=== PATIENT | female | born 1935 | race African-American/Black ===

== ENCOUNTER 2017-06-04 00:30 | Inpatient (IN) | payer MEDICARE, OTHER ==
[2017-06-04] VITALS (20 sets, daily range): BP systolic 99–143; BP diastolic 59–95; PULSE 96–131; RESP 16–26; TEMP 97.4–102.5; O2SAT 92–100
[~2017-06-04] VITALS: Ht 157.5 cm; Wt 60.8 kg
[2017-06-04] MEDS ORDERED: AMLO5TAB2 PO (00:56)
[2017-06-04] MEDS ORDERED: TYLE325T PO (00:56)
[2017-06-04] MEDS ORDERED: MULTTAB67 PO (00:56)
[2017-06-04] MEDS ORDERED: ASPI-516 CHEW (00:56)
[2017-06-04] MEDS ORDERED: ARIC23TA PO (00:56)
[2017-06-04] MEDS ORDERED: POTASOL PO (00:56)
[2017-06-04] MEDS ORDERED: MIRT30TA PO (00:56)
[2017-06-04] MEDS ORDERED: MEMA1TAB PO (00:56)
[2017-06-04] MEDS ORDERED: LOPE2CAP PO (00:56)
--- NOTE | 2017-06-04 01:11 | PD ---
HPI Chief Complaint: Fever Time Seen by Provider: 00:47 Travel History International Travel<30 days: No Contact w/Intl Traveler<30days: No Traveled to known affect area: No History of Present Illness HPI pt sent from [place] for shaking chills altered mental status and fever slight cough, pt baseline demented . awake alert . non verbal temp rectal triage 102 in ER and ROS and HPI limited due to mental status of dementia PFSH Past Medical History Alzheimer's Disease: Yes Depression: Yes Dementia: Yes Hypertension: Yes Tetanus Vaccination: Unknown Influenza Vaccination: Yes Social History Alcohol Use: No Tobacco Use: No Substance Use: No Allergies-Medications (Allergen,Severity, Reaction): Coded Allergies: No Known Allergies (Unverified , 06/04/17) Reported Meds & Prescriptions Reported Meds & Active Scripts Active Reported Aspirin 81 Mg Chew 81 Mg CHEW DAILY Potassium Citrate-Citric Acid 1,100-334 Mg/5 Ml Soln 15 Ml PO QID Memantine 5 Mg Tab 5 Mg PO DAILY Amlodipine (Amlodipine Besylate) 5 Mg Tab 5 Mg PO DAILY Loperamide (Loperamide HCl) 2 Mg Cap 4 Mg PO DIRECTED PRN One capsule after each loose stool. Not to exceed 8 capsules per day. Tylenol (Acetaminophen) 325 Mg Tab 650 Mg PO Q4H PRN Aricept (Donepezil) 23 Mg Tab 5 Mg PO HS Do not split, crushed or chewed. Mirtazapine 30 Mg Tab 30 Mg PO HS Multiple Vitamin 1 Tab 1 Tab PO DAILY Review of Systems ROS Limitations: Poor Historian Data Data Last Documented VS Vital Signs Date Time Temp Pulse Resp B/P (MAP) Pulse Ox O2 Delivery O2 Flow Rate FiO2 06/04/17 02:11 120 22 113/69 (84) 97 Nasal Cannula 4.00 06/04/17 00:59 102.5 Orders Orders Complete Blood Count With Diff (06/04/17 00:49) Comprehensive Metabolic Panel (06/04/17 00:49) Troponin I (06/04/17 00:49) Blood Culture (06/04/17 00:49) Lipase (06/04/17 00:49) Urinalysis - C+S If Indicated (06/04/17 00:49) Ammonia (06/04/17 00:49) Chest, Single Ap (06/04/17 00:49) Vancomycin Inj (Vancomycin Inj) (06/04/17 01:15) Piperacil-Tazo 3.375 Gm Premix (Zosyn 3. (06/04/17 01:15) ^ Straight Catheter (06/04/17 01:06) Acetaminophen (Tylenol) (06/04/17 01:15) Lactic Acid (06/04/17 01:11) Urine Culture (06/04/17 01:05) Admit Order (Ed Use Only) (06/04/17 02:12) Labs Laboratory Tests Test 06/04/17 01:00 06/04/17 01:05 White Blood Count 11.7 TH/MM3 Red Blood Count 3.87 MIL/MM3 Hemoglobin 10.9 GM/DL Hematocrit 33.7 % Mean Corpuscular Volume 87.0 FL Mean Corpuscular Hemoglobin 28.1 PG Mean Corpuscular Hemoglobin Concent 32.3 % Red Cell Distribution Width 14.4 % Platelet Count 357 TH/MM3 Mean Platelet Volume 7.0 FL Neutrophils (%) (Auto) 77.5 % Lymphocytes (%) (Auto) 12.3 % Monocytes (%) (Auto) 10.0 % Eosinophils (%) (Auto) 0.0 % Basophils (%) (Auto) 0.2 % Neutrophils # (Auto) 9.1 TH/MM3 Lymphocytes # (Auto) 1.4 TH/MM3 Monocytes # (Auto) 1.2 TH/MM3 Eosinophils # (Auto) 0.0 TH/MM3 Basophils # (Auto) 0.0 TH/MM3 CBC Comment DIFF FINAL Differential Comment Blood Urea Nitrogen 12 MG/DL Creatinine 0.97 MG/DL Random Glucose 154 MG/DL Total Protein 7.2 GM/DL Albumin 2.6 GM/DL Calcium Level 8.3 MG/DL Alkaline Phosphatase 109 U/L Aspartate Amino Transf (AST/SGOT) 33 U/L Alanine Aminotransferase (ALT/SGPT) 22 U/L Total Bilirubin 0.4 MG/DL Sodium Level 142 MEQ/L Potassium Level 3.8 MEQ/L Chloride Level 106 MEQ/L Carbon Dioxide Level 23.4 MEQ/L Anion Gap 13 MEQ/L Estimat Glomerular Filtration Rate 55 ML/MIN Lactic Acid Level 1.0 mmol/L Ammonia 16 MCMOL/L Troponin I 0.03 NG/ML Lipase 33 U/L Urine Color YELLOW Urine Turbidity HAZY Urine pH 6.0 Urine Specific [place] 1.023 Urine Protein 100 mg/dL Urine Glucose (UA) NEG mg/dL Urine Ketones 40 mg/dL Urine Occult Blood MOD Urine Nitrite POS Urine Bilirubin NEG Urine Urobilinogen 2.0 MG/DL Urine Leukocyte Esterase NEG Urine RBC 2 /hpf Urine WBC 7 /hpf Urine Squamous Epithelial Cells <1 /hpf Urine Bacteria MANY /hpf Urine Hyaline Casts 2 /lpf Urine Mucus MANY /lpf Microscopic Urinalysis Comment CULTURE INDICATED MDM Medical Decision Making Interpretation(s) EKG is left bundle branch block at a rate of 129 due to fever Diagnosis Primary Impression: Pneumonia Qualified Codes: J18.1 - Lobar pneumonia, unspecified organism Additional Impression: Urinary (tract) obstruction Osei Ruiz MD Jun 04, 2017 01:11
[2017-06-04] MEDS ORDERED: VANCOMYCIN INJ 1,000 MG in SODIUM CHLOR 0.9% 250 ML INJ 250 ML IV ONE (01:15)
[2017-06-04] MEDS ORDERED: ACETAMINOPHEN 325 MG TAB PO ONE (01:15)
[2017-06-04] MEDS ORDERED: PIPERACIL-TAZO 3.375 GM PREMIX 50 ML IV ONE (01:15)
[2017-06-04 01:16] LABS: AUTOMATED NEUTROPHIL # 9.1 TH/MM3 (1.8-7.7); BASOPHIL % 0.2 % (0.0-2.0); HEMATOCRIT 33.7 % (35.0-46.0); HEMOGLOBIN 10.9 GM/DL (11.6-15.3); LYMPH % 12.3 % (9.0-44.0); LYMPHOCYTE # 1.4 TH/MM3 (1.0-4.8); MEAN CORPUSCULAR HEMOGLOBIN 28.1 PG (27.0-34.0); MEAN CORPUSCULAR HGB CONC 32.3 % (32.0-36.0); MONOCYTE # 1.2 TH/MM3 (0-0.9); NEUT % 77.5 % (16.0-70.0); PLATELET COUNT 357 TH/MM3 (150-450); RED BLOOD COUNT 3.87 MIL/MM3 (4.00-5.30); RED CELL DISTRIBUTION WIDTH 14.4 % (11.6-17.2); WHITE BLOOD COUNT 11.7 TH/MM3 (4.0-11.0)
[2017-06-04 01:22] LABS: BACTERIA, URINE MANY /hpf; BILIRUBIN, URINE NEG (NEG); BLOOD, URINE MOD (NEG); GLUCOSE,URINE NEG (NEG); HYALINE CAST, URINE 2 /lpf (RARE); KETONE, URINE 40 mg/dL (NEG); MUCUS URINE MANY /lpf (OCC); NITRITE,URINE POS (NEG); SQUAMOUS EPITHELIAL CELL URINE <1 /hpf (0-5); URINE COLOR YELLOW (YELLW/STRAW); URINE LEUKOCYTE ESTERASE NEG (NEG)
[2017-06-04 01:30] LABS: ALBUMIN 2.6 GM/DL (3.4-5.0); ALT (GPT) 22 U/L (10-53); AST (GOT) 33 U/L (15-37); BICARBONATE 23.4 MEQ/L (21.0-32.0); BLOOD UREA NITROGEN 12 MG/DL (7-18); CALCIUM 8.3 MG/DL (8.5-10.1); CHLORIDE 106 MEQ/L (98-107); CREATININE 0.97 MG/DL (0.50-1.00); GLOMERULAR FILTRATION RATE 55 ML/MIN (>89); GLUCOSE,RANDOM 154 MG/DL (74-106); SODIUM (NA) 142 MEQ/L (136-145)
[2017-06-04 01:34] LABS: ALKALINE PHOSPHATASE 109 U/L (45-117); TOTAL BILIRUBIN ADULT 0.4 MG/DL (0.2-1.0); TOTAL PROTEIN 7.2 GM/DL (6.4-8.2); TROPONIN I 0.03 NG/ML (0.02-0.05)
--- NOTE | 2017-06-04 01:46 | RADRPT ---
EXAM DATE/TIME: 06/04/2017 01:12 [place] COMPARISON: No previous studies available for comparison. INDICATIONS : Cough. MEDICAL HISTORY : Hypertension. SURGICAL HISTORY : None. ENCOUNTER: Initial ACUITY: 1 day PAIN SCORE: Non-responsive. LOCATION: Bilateral chest FINDINGS: Mild patient rotation towards the right. Indistinct opacity in the right perihilar and infrahilar re gion with possible consolidation. The heart is normal in size when taking into account patient rotat ion. The left lung is clear. Left hemidiaphragm is well delineated. CONCLUSION: Infiltrates in the right munir-and infrahilar regions. Dino Sheppard MD on June 04, 2017 at 1:39 Board Certified Radiologist. This report was verified electronically.
[2017-06-04] MEDS ORDERED: SODIUM CHLORIDE 0.9% FLUSH 10 ML FLUSH IV FLUSH PRN (02:30)
[2017-06-04] MEDS ORDERED: ACETAMINOPHEN 325 MG TAB PO PRN (02:30)
[2017-06-04] MEDS ORDERED: ONDANSETRON HCL 4 MG/2 ML VIAL IVP PRN (02:30)
[2017-06-04] MEDS ORDERED: LACTULOSE SYRUP 20 GM/30 ML CUP PO PRN (02:30)
[2017-06-04] MEDS ORDERED: Vancomycin Consult Pharmacy 1 EA OTHER SCH (02:30)
[2017-06-04] MEDS ORDERED: MAGNESIUM HYDROXIDE SUSP 30 ML CUP PO PRN (02:30)
[2017-06-04] MEDS ORDERED: BISACODYL 10 MG SUPP RECTAL PRN (02:30)
[2017-06-04] MEDS ORDERED: SENNOSIDES 8.6 MG TAB PO PRN (02:30)
[2017-06-04] MEDS ORDERED: NALOXONE HCL 0.4 MG/ML AMP IV PUSH PRN (02:30)
[2017-06-04] MEDS ORDERED: RESP: ALBUTEROL 2.5 MG/IPRATROPIUM 0.5 MG NEB (PRN) NEB (02:45)
[2017-06-04] MEDS: RESP: ALBUTEROL 2.5 MG/IPRATROPIUM 0.5 MG NEB (SCH) NEB ×4 (03:15→19:24)
--- NOTE | 2017-06-04 04:26 | HHI.HP ---
[facility] Nicholas Galindo MD (Paul) Admission Diagnosis Urosepsis PNA Diagnoses: Travel History International Travel<30 Days: No Contact w/Intl Traveler <30 Da: No Traveled to Known Affected Are: No History of Present Illness 81-year-old female with a past medical history significant for Alzheimer's dementia, hypertension, coronary artery disease and depression presents to the emergency depart for the evaluation of altered mental status and fevers. Patient is a resident of [facility] who is unable to tell me why she is in the emergency department. She will answer simple questions however is alert and oriented 1. Per emergency department documentation the patient has had a slight nonproductive cough and is demented at baseline. On arrival to the emergency department she was found to be febrile and tachycardic. Review of Systems Review of systems limited secondary to clinical condition. Patient denies any pain at this time. Past Family Social History Past Medical History (Obtained from medical records) Alzheimer's dementia, hypertension, coronary artery disease and depression Past Surgical History Unable to obtain Reported Medications Reported Meds & Active Scripts Active Reported Aspirin 81 Mg Chew 81 Mg CHEW DAILY Potassium Citrate-Citric Acid 1,100-334 Mg/5 Ml Soln 15 Ml PO QID Memantine 5 Mg Tab 5 Mg PO DAILY Amlodipine (Amlodipine Besylate) 5 Mg Tab 5 Mg PO DAILY Loperamide (Loperamide HCl) 2 Mg Cap 4 Mg PO DIRECTED PRN One capsule after each loose stool. Not to exceed 8 capsules per day. Tylenol (Acetaminophen) 325 Mg Tab 650 Mg PO Q4H PRN Aricept (Donepezil) 23 Mg Tab 5 Mg PO HS Do not split, crushed or chewed. Mirtazapine 30 Mg Tab 30 Mg PO HS Multiple Vitamin 1 Tab 1 Tab PO DAILY Allergies: Coded Allergies: No Known Allergies (Unverified , 06/04/17) Family History Unable to obtain Social History Unable to obtain Physical Exam Vital Signs Vital Signs Date Time Temp Pulse Resp B/P (MAP) Pulse Ox O2 Delivery O2 Flow Rate FiO2 06/04/17 03:17 97 Nasal Cannula 3.00 06/04/17 03:11 99.4 06/04/17 02:11 120 22 113/69 (84) 97 Nasal Cannula 4.00 06/04/17 00:59 102.5 06/04/17 00:42 101.5 131 26 137/95 (109) 94 Physical Exam GENERAL: female lying in bed SKIN: No rashes, ecchymoses or lesions. Cool and dry. HEAD: Atraumatic. Normocephalic. No temporal or scalp tenderness. EYES: Pupils equal round and reactive. Extraocular motions intact. No scleral icterus. No injection or drainage. ENT: Nose without bleeding, purulent drainage or septal hematoma. Throat without erythema, tonsillar hypertrophy or exudate. Uvula midline. Airway patent. NECK: Trachea midline. No JVD or lymphadenopathy. Supple, nontender, no meningeal signs. CARDIOVASCULAR: Regular rate and rhythm without murmurs, gallops, or rubs. RESPIRATORY: Clear to auscultation. Breath sounds equal bilaterally. No wheezes , rales, or rhonchi. GASTROINTESTINAL: Abdomen soft, non-tender, nondistended. No hepato-splenomegaly , or palpable masses. No guarding. MUSCULOSKELETAL: Extremities without clubbing, cyanosis, or edema. No joint tenderness, effusion, or edema noted. No calf tenderness. NEUROLOGICAL: Awake and alert. Moves all 4 extremities spontaneously. Laboratory Laboratory Tests Test 06/04/17 01:00 06/04/17 01:05 White Blood Count 11.7 Red Blood Count 3.87 Hemoglobin 10.9 Hematocrit 33.7 Mean Corpuscular Volume 87.0 Mean Corpuscular Hemoglobin 28.1 Mean Corpuscular Hemoglobin Concent 32.3 Red Cell Distribution Width 14.4 Platelet Count 357 Mean Platelet Volume 7.0 Neutrophils (%) (Auto) 77.5 Lymphocytes (%) (Auto) 12.3 Monocytes (%) (Auto) 10.0 Eosinophils (%) (Auto) 0.0 Basophils (%) (Auto) 0.2 Neutrophils # (Auto) 9.1 Lymphocytes # (Auto) 1.4 Monocytes # (Auto) 1.2 Eosinophils # (Auto) 0.0 Basophils # (Auto) 0.0 CBC Comment DIFF FINAL Differential Comment Blood Urea Nitrogen 12 Creatinine 0.97 Random Glucose 154 Total Protein 7.2 Albumin 2.6 Calcium Level 8.3 Alkaline Phosphatase 109 Aspartate Amino Transf (AST/SGOT) 33 Alanine Aminotransferase (ALT/SGPT) 22 Total Bilirubin 0.4 Sodium Level 142 Potassium Level 3.8 Chloride Level 106 Carbon Dioxide Level 23.4 Anion Gap 13 Estimat Glomerular Filtration Rate 55 Lactic Acid Level 1.0 Ammonia 16 Troponin I 0.03 Lipase 33 Urine Color YELLOW Urine Turbidity HAZY Urine pH 6.0 Urine Specific [place] 1.023 Urine Protein 100 Urine Glucose (UA) NEG Urine Ketones 40 Urine Occult Blood MOD Urine Nitrite POS Urine Bilirubin NEG Urine Urobilinogen 2.0 Urine Leukocyte Esterase NEG Urine RBC 2 Urine WBC 7 Urine Squamous Epithelial Cells <1 Urine Bacteria MANY Urine Hyaline Casts 2 Urine Mucus MANY Microscopic Urinalysis Comment CULTURE INDICATED Date/Time Source Procedure Growth Status 06/04/17 01:00 Blood Peripheral Aerobic Blood Culture Pending Received 06/04/17 01:00 Blood Peripheral Anaerobic Blood Culture Pending Received 06/04/17 01:05 Urine Random Urine Urine Culture Pending Received Result Diagram: 06/04/179906/04/17 010 Caprini VTE Risk Assessment Caprini VTE Risk Assessment: Mod/High Risk (score >= 2) Caprini Risk Assessment Model Point Value = 1 Point Value = 2 Point Value = 3 Point Value = 5 Age 41-60 Minor surgery BMI > 25 kg/m2 Swollen legs Varicose veins or History of unexplained or recurrent spontaneous Oral contraceptives or hormone replacement Sepsis (< 1 month) Serious lung disease, including pneumonia (< 1 month) Abnormal pulmonary function Acute myocardial infarction Congestive heart failure (< 1 month) History of inflammatory bowel disease Medical patient at bed rest Age 61-74 Arthroscopic surgery Major open surgery (> 45 min) Laparoscopic surgery (> 45 min) Malignancy Confined to bed (> 72 hours) Immobilizing plaster cast Central venous access Age >= 75 History of VTE Family history of VTE Factor V Leiden Prothrombin [id number] Lupus anticoagulant Anticardiolipin antibodies Elevated serum homocysteine Heparin-induced thrombocytopenia Other congenital or acquired thrombophilia Stroke (< 1 month) Elective arthroplasty Hip, pelvis, or leg fracture Acute spinal cord injury (< 1 month) Prophylaxis Regimen Total Risk Factor Score Risk Level Prophylaxis Regimen 0-1 Low Early ambulation 2 Moderate Order ONE of the following: *Sequential Compression Device (SCD) *Heparin 5000 units SQ BID 3-4 Higher Order ONE of the following medications: *Heparin 5000 units SQ TID *Enoxaparin/Lovenox 40 mg SQ daily (WT < 150 kg, CrCl > 30 mL/min) *Enoxaparin/Lovenox 30 mg SQ daily (WT < 150 kg, CrCl > 10-29 mL/min) *Enoxaparin/Lovenox 30 mg SQ BID (WT < 150 kg, CrCl > 30 mL/min) AND/OR *Sequential Compression Device (SCD) 5 or more Highest Order ONE of the following medications: *Heparin 5000 units SQ TID (Preferred with Epidurals) *Enoxaparin/Lovenox 40 mg SQ daily (WT < 150 kg, CrCl > 30 mL/min) *Enoxaparin/Lovenox 30 mg SQ daily (WT < 150 kg, CrCl > 10-29 mL/min) *Enoxaparin/Lovenox 30 mg SQ BID (WT < 150 kg, CrCl > 30 mL/min) AND *Sequential Compression Device (SCD) Assessment and Plan Assessment and Plan Assessment/plan: 1. Healthcare associated pneumonia/sepsis Patient febrile, tachycardic with leukocytosis Vancomycin/Zosyn Blood cultures pending DuoNeb's Supplemental oxygen as needed 2. UTI UA consistent with urinary tract infection Urine culture pending Antibiotics as above 3. Hypertension/coronary disease/depression Continue home medication FEN Heart healthy diet Electrolytes: monitor and replete prn Heparin NS at 80 cc/hr Physician Certification 2 Midnight Certification Type: Admission for Inpatient Services Order for Inpatient Services The services are ordered in accordance with Medicare regulations or non- Medicare payer requirements, as applicable. In the case of services not specified as inpatient-only, they are appropriately provided as inpatient services in accordance with the 2-midnight benchmark. Estimated LOS (days): 2 2 days is the estimated time the patient will need to remain in the hospital, assuming treatment plan goals are met and no additional complications. Post-Hospital Plan: Not yet determined Natasha Parsons MD Jun 04, 2017 04:25
[2017-06-04] MEDS: HEPARIN SODIUM - SQ 10,000 UNITS/ML VIAL SQ SCH ×3 (04:28→20:25)
[2017-06-04] MEDS: SODIUM CHLOR 0.9% 1000 ML INJ 1,000 ML IV SCH ×2 (04:32→14:25)
[2017-06-04] MEDS: amLODIPine BESYLATE 5 MG TAB PO SCH (08:27)
[2017-06-04] MEDS: SODIUM CHLORIDE 0.9% FLUSH 10 ML FLUSH IV FLUSH SCH ×2 (08:28→20:28)
[2017-06-04] MEDS: PIPERACIL-TAZO 3.375 GM PREMIX 50 ML IV SCH ×3 (08:30→20:24)
[2017-06-04] MEDS: MEMANTINE HCL 5 MG TAB PO SCH (09:00)
[2017-06-04] MEDS: POTASSIUM CITRATE/CITRIC ACID SOLN 15 ML UDC PO SCH ×4 (09:00→20:25)
[2017-06-04] MEDS: ASPIRIN 81 MG CHEW TAB CHEW SCH (09:00)
[2017-06-04] MEDS: guaiFENesin E.R. 600 MG TAB PO SCH ×2 (09:00→20:25)
--- NOTE | 2017-06-04 12:11 | HHI.PR ---
Addendum to Inpatient Note Addendum Reason: Additional Documentation Additional Information The patient was sitting up in a chair. She was feeling well. Her daughter was at the bedside and her questions were answered. The patient was having some swallowing difficulties and was about to work with speech therapy. We will continue IV antibiotics. Continue rehab efforts. Taj Peterson DO Jun 04, 2017 12:11
--- NOTE | 2017-06-04 13:36 | EKG ---
Date Performed: 06/04/2017 Time Performed: 00:49:37 PTAGE: 81 years EKG: ECTOPIC ATRIAL TACHYCARDIA MARKED LEFT AXIS DEVIATION LEFT BUNDLE BRANCH BLOCK ABNORMAL ECG NO PREVIOUS TRACING DOCTOR: Rodolfo Pompa Interpretating Date/Time 06/04/2017 13:35:18
[2017-06-04] MEDS: DONEPEZIL HCL 5 MG TAB PO SCH (20:25)
[2017-06-04] MEDS: MIRTAZAPINE 15 MG TAB PO SCH (20:25)
[2017-06-05] VITALS (8 sets, daily range): BP systolic 128–161; BP diastolic 71–93; PULSE 95–108; RESP 17–20; TEMP 98–98.6; O2SAT 94–100
[2017-06-05] MEDS: VANCOMYCIN 1,000 MG/NS 250 ML IV SCH ×2 (02:14)
[2017-06-05] MEDS: SODIUM CHLOR 0.9% 1000 ML INJ 1,000 ML IV SCH ×2 (02:58→15:28)
[2017-06-05] MEDS: PIPERACIL-TAZO 3.375 GM PREMIX 50 ML IV SCH ×4 (04:03→19:54)
[2017-06-05] MEDS: HEPARIN SODIUM - SQ 10,000 UNITS/ML VIAL SQ SCH ×3 (04:13→19:55)
[2017-06-05] MEDS: RESP: ALBUTEROL 2.5 MG/IPRATROPIUM 0.5 MG NEB (SCH) NEB ×4 (05:11→21:35)
[2017-06-05 06:20] LABS: AUTOMATED NEUTROPHIL # 7.7 TH/MM3 (1.8-7.7); BASOPHIL % 0.4 % (0.0-2.0); EOSINOPHIL # 0.1 TH/MM3 (0-0.4); EOSINOPHIL % 0.6 % (0.0-4.0); HEMATOCRIT 32.8 % (35.0-46.0); HEMOGLOBIN 10.9 GM/DL (11.6-15.3); LYMPH % 17.7 % (9.0-44.0); LYMPHOCYTE # 1.9 TH/MM3 (1.0-4.8); MEAN CELL VOLUME 87.6 FL (80.0-100.0); MEAN CORPUSCULAR HGB CONC 33.1 % (32.0-36.0); MONO % 8.3 % (0.0-8.0); MONOCYTE # 0.9 TH/MM3 (0-0.9); PLATELET COUNT 383 TH/MM3 (150-450); RED BLOOD COUNT 3.75 MIL/MM3 (4.00-5.30); RED CELL DISTRIBUTION WIDTH 14.5 % (11.6-17.2); WHITE BLOOD COUNT 10.6 TH/MM3 (4.0-11.0)
[2017-06-05 06:41] LABS: BICARBONATE 25.2 MEQ/L (21.0-32.0); CALCIUM 8.5 MG/DL (8.5-10.1); CREATININE 0.91 MG/DL (0.50-1.00)
[2017-06-05] MEDS: MEMANTINE HCL 5 MG TAB PO SCH (08:33)
[2017-06-05] MEDS: guaiFENesin E.R. 600 MG TAB PO SCH ×2 (08:33→19:54)
[2017-06-05] MEDS: amLODIPine BESYLATE 5 MG TAB PO SCH (08:33)
[2017-06-05] MEDS: POTASSIUM CITRATE/CITRIC ACID SOLN 15 ML UDC PO SCH ×4 (08:33→19:54)
[2017-06-05] MEDS: ASPIRIN 81 MG CHEW TAB CHEW SCH (08:33)
[2017-06-05] MEDS: SODIUM CHLORIDE 0.9% FLUSH 10 ML FLUSH IV FLUSH SCH ×2 (08:33→19:55)
[2017-06-05 09:13] LABS: BANDS 17 % (0-6); LYMPHOCYTES 11 % (9-44); MONOCYTES 7 % (0-8); MYELOCYTES 1 % (0-0); NEUTROPHIL # MANUAL DIFF 8.6 TH/MM3 (1.8-7.7); POLYS (SEG NEUTROPHILS) 63 % (16-70)
[2017-06-05 09:14] LABS: OVALOCYTES 1+ (NORMAL)
--- NOTE | 2017-06-05 10:57 | HHI.PR ---
Subjective Remarks Follow-up sepsis. States she is pretty good. She is awake and following simple commands. Discussed with nursing Objective Vitals Vital Signs Date Time Temp Pulse Resp B/P (MAP) Pulse Ox O2 Delivery O2 Flow Rate FiO2 06/05/17 08:52 96 Nasal Cannula 2.00 06/05/17 08:00 Nasal Cannula 2.00 06/05/17 08:00 98.6 108 17 138/77 (97) 95 06/05/17 08:00 100 06/05/17 04:00 98.0 102 20 140/80 (100) 95 06/05/17 04:00 Nasal Cannula 2.00 06/05/17 04:00 101 06/05/17 00:00 105 06/05/17 00:00 98.0 105 20 128/75 (92) 100 06/05/17 00:00 Nasal Cannula 2.00 06/04/17 22:24 98.0 117 16 126/65 (85) 98 06/04/17 21:30 Nasal Cannula 2.00 06/04/17 21:18 117 06/04/17 20:03 101.9 130 20 143/69 (93) 93 06/04/17 19:25 96 Nasal Cannula 2.00 06/04/17 16:00 97.8 104 16 120/66 (84) 97 06/04/17 15:27 96 06/04/17 12:03 105 06/04/17 11:12 97.9 103 16 121/68 (85) 95 06/04/17 10:58 97 Nasal Cannula 2.00 I/O 06/04/17 06/04/17 06/04/17 06/05/17 06/05/17 06/05/17 07:00 15:00 23:00 07:00 15:00 23:00 Intake Total 50 ml 100 ml 1010 ml Balance 50 ml 100 ml 1010 ml Intake Oral 0 ml 0 ml 100 ml IV Total 50 ml 100 ml 910 ml # Voids 2 # Bowel Movements 2 Result Diagram: 06/05/17 0544 06/05/17 0445 Imaging Last Impressions Chest X-Ray 06/04/17 0049 Signed Impressions: Service Date/Time: Sunday, June 04, 2017 01:12 - CONCLUSION: Infiltrates in the right munir-and infrahilar regions. Dino Sheppard MD Objective Remarks GENERAL: female lying in bed SKIN: No rashes, ecchymoses or lesions. Cool and dry. CARDIOVASCULAR: Regular rate and rhythm without murmurs, gallops, or rubs. RESPIRATORY: Clear to auscultation. Breath sounds equal bilaterally. No wheezes , rales, or rhonchi. GASTROINTESTINAL: Abdomen soft, non-tender, nondistended. No guarding. MUSCULOSKELETAL: Extremities without clubbing, cyanosis, or edema. No joint tenderness, effusion, or edema noted. No calf tenderness. NEUROLOGICAL: Awake and alert. Moves all 4 extremities spontaneously. Procedures none A/P Problem List: (1) Pneumonia ICD Code: J18.9 - Pneumonia, unspecified organism Status: Acute (2) Urinary (tract) obstruction ICD Code: N13.9 - Obstructive and reflux uropathy, unspecified Status: Acute Assessment and Plan 1. Healthcare associated pneumonia/sepsis Patient febrile, tachycardic with leukocytosis Vancomycin/Zosyn Blood cultures negative to date DuoNeb's Supplemental oxygen as needed 2. UTI with gram-negative tatyana UA consistent with urinary tract infection Urine culture pending Antibiotics as above 3. Hypertension/coronary disease/depression Continue home medication Encephalopathy hx dementia. Likely from sepsis. Improved i think she is baseline FEN Heart healthy diet Electrolytes: monitor and replete prn Heparin NS at 80 cc/hr Discharge Planning Discharge in 1-2 days Problem Qualifiers (1) Pneumonia: Qualified Codes: J18.1 - Lobar pneumonia, unspecified organism James Acharya MD Jun 05, 2017 10:57
--- NOTE | 2017-06-05 14:50 | HHI.DCPOC ---
Discharge Care Plan Diagnosis: (1) Urinary (tract) obstruction (2) Pneumonia Your Health Problems Are: Difficulty with ADL Exercise Tolerance Goals to Promote Your Health * To prevent worsening of your condition and complications * To maintain your health at the optimal level Directions to Meet Your Goals Take your medications as prescribed Follow your dietary instruction Follow activity as directed Keep your appointments as scheduled Take your immunizations and boosters as scheduled If your symptoms worsen call your PCP, if no PCP go to Urgent Care Center or Emergency Room Smoking is Dangerous to Your Health. Avoid second hand smoke Call the 24-hour hour crisis hotline for domestic abuse at James Acharya MD Jun 05, 2017 14:50
[2017-06-05] MEDS: MIRTAZAPINE 15 MG TAB PO SCH (19:54)
[2017-06-05] MEDS: DONEPEZIL HCL 5 MG TAB PO SCH (19:55)
[2017-06-06] VITALS: BP 147/84; PULSE 109; PULSE 113; RESP 20; TEMP 98.5; O2SAT 92
[2017-06-06] MEDS: VANCOMYCIN 1,000 MG/NS 250 ML IV SCH ×2 (02:16)
[2017-06-06] MEDS: PIPERACIL-TAZO 3.375 GM PREMIX 50 ML IV SCH ×2 (02:17→08:31)
[2017-06-06] MEDS: RESP: ALBUTEROL 2.5 MG/IPRATROPIUM 0.5 MG NEB (SCH) NEB ×2 (03:55→08:15)
[2017-06-06] MEDS: SODIUM CHLOR 0.9% 1000 ML INJ 1,000 ML IV SCH (03:58)
[2017-06-06 04:00] VITALS: BP 130/67; PULSE 102; PULSE 98; RESP 20; TEMP 99.5; O2SAT 94
[2017-06-06] MEDS: HEPARIN SODIUM - SQ 10,000 UNITS/ML VIAL SQ SCH ×2 (05:12→12:26)
[2017-06-06 08:00] VITALS: BP 151/83; PULSE 86; PULSE 98; RESP 20; TEMP 96.5; O2SAT 91
[2017-06-06 08:18] VITALS: O2SAT 92
[2017-06-06] MEDS: POTASSIUM CITRATE/CITRIC ACID SOLN 15 ML UDC PO SCH ×2 (08:31→12:25)
[2017-06-06] MEDS: guaiFENesin E.R. 600 MG TAB PO SCH (08:31)
[2017-06-06] MEDS: amLODIPine BESYLATE 5 MG TAB PO SCH (08:32)
[2017-06-06] MEDS: ASPIRIN 81 MG CHEW TAB CHEW SCH (08:32)
[2017-06-06] MEDS: MEMANTINE HCL 5 MG TAB PO SCH (08:32)
[2017-06-06] MEDS: SODIUM CHLORIDE 0.9% FLUSH 10 ML FLUSH IV FLUSH SCH (08:33)
--- NOTE | 2017-06-06 08:33 | HHI.PR ---
Subjective Remarks F/U PNA and UTI. States she is pretty good oriented to person dw RN Objective Vitals Vital Signs Date Time Temp Pulse Resp B/P (MAP) Pulse Ox O2 Delivery O2 Flow Rate FiO2 06/06/17 08:18 92 21 06/06/17 04:00 98 06/06/17 04:00 99.5 102 20 130/67 (88) 94 06/06/17 00:00 109 06/06/17 00:00 98.5 113 20 147/84 (105) 92 06/05/17 20:00 104 06/05/17 20:00 98.1 102 20 152/93 (112) 94 06/05/17 20:00 Nasal Cannula 2.00 06/05/17 16:00 104 06/05/17 16:00 98.3 107 17 134/71 (92) 97 06/05/17 15:51 94 Nasal Cannula 2.00 06/05/17 12:00 95 06/05/17 12:00 98.6 100 17 161/82 (108) 97 06/05/17 08:52 96 Nasal Cannula 2.00 I/O 06/05/17 06/05/17 06/05/17 06/06/17 06/06/17 06/06/17 07:00 15:00 23:00 07:00 15:00 23:00 Intake Total 1010 ml 0 ml Balance 1010 ml 0 ml Intake Oral 100 ml 0 ml IV Total 910 ml # Voids 2 6 2 # Bowel Movements 2 1 1 Result Diagram: 06/05/17 0544 06/05/17 0445 Imaging Last Impressions Chest X-Ray 06/04/17 0049 Signed Impressions: Service Date/Time: Sunday, June 04, 2017 01:12 - CONCLUSION: Infiltrates in the right munir-and infrahilar regions. Dino Sheppard MD Objective Remarks GENERAL: female lying in bed SKIN: No rashes, ecchymoses or lesions. Cool and dry. CARDIOVASCULAR: Regular rate and rhythm without murmurs, gallops, or rubs. RESPIRATORY: Clear to auscultation. Breath sounds equal bilaterally. No wheezes , rales, or rhonchi. GASTROINTESTINAL: Abdomen soft, non-tender, nondistended. No guarding. MUSCULOSKELETAL: Extremities without clubbing, cyanosis, or edema. No joint tenderness, effusion, or edema noted. No calf tenderness. NEUROLOGICAL: Awake and alert. Moves all 4 extremities spontaneously. Procedures none A/P Problem List: (1) Pneumonia ICD Code: J18.9 - Pneumonia, unspecified organism Status: Acute (2) Urinary (tract) obstruction ICD Code: N13.9 - Obstructive and reflux uropathy, unspecified Status: Acute Assessment and Plan 1. Healthcare associated pneumonia/sepsis. Improved switch to po Cipro rpt CXR 6 weeks. Blood cultures negative to date. Ordered sputum culture, urinary Legionella and pneumococcal antigen. DuoNeb's. Supplemental oxygen as needed 2. E coli UTI. Stable as above 3. Hypertension/coronary disease/depression. Stable Continue home medication 4. Encephalopathy hx dementia. Likely from sepsis. Improved I think she is baseline. Ct Pureed she needs assistance with meals Discharge Planning Stable for Discharge to SNF Problem Qualifiers (1) Pneumonia: Qualified Codes: J18.1 - Lobar pneumonia, unspecified organism James Acharya MD Jun 06, 2017 08:33
[2017-06-06] MEDS ORDERED: CIPROFLOXACIN 500 MG TAB PO SCH (11:15)
[2017-06-06] MEDS ORDERED: CIPR750T2 PO (11:25)
[2017-06-06 12:00] VITALS: BP 145/87; PULSE 99; RESP 20; TEMP 97; O2SAT 95
[2017-06-06] MEDS ORDERED: CIPROFLOXACIN 750 MG TAB PO SCH (12:00)
--- NOTE | 2017-06-06 13:32 | HHI.DS ---
Discharge Summary Admission Date Jun 04, 2017 at 02:14 Discharge Date: Jun 06, 2017 Admitting Diagnosis Urosepsis PNA (1) Pneumonia ICD Code: J18.9 - Pneumonia, unspecified organism Diagnosis: Principal Status: Acute (2) Urinary (tract) obstruction ICD Code: N13.9 - Obstructive and reflux uropathy, unspecified Diagnosis: Principal Status: Acute Procedures none Brief History - From Admission 81-year-old female with a past medical history significant for Alzheimer's dementia, hypertension, coronary artery disease and depression presents to the emergency depart for the evaluation of altered mental status and fevers. Patient is a resident of [facility] who is unable to tell me why she is in the emergency department. She will answer simple questions however is alert and oriented 1. Per emergency department documentation the patient has had a slight nonproductive cough and is demented at baseline. On arrival to the emergency department she was found to be febrile and tachycardic. CBC/BMP: 06/05/17 0544 06/05/17 0445 Significant Findings Laboratory Tests Test 06/04/17 01:00 06/04/17 01:05 06/05/17 04:45 06/05/17 05:44 White Blood Count 11.7 TH/MM3 (4.0-11.0) Red Blood Count 3.87 MIL/MM3 (4.00-5.30) 3.75 MIL/MM3 (4.00-5.30) Hemoglobin 10.9 GM/DL (11.6-15.3) 10.9 GM/DL (11.6-15.3) Hematocrit 33.7 % (35.0-46.0) 32.8 % (35.0-46.0) Neutrophils (%) (Auto) 77.5 % (16.0-70.0) 73.0 % (16.0-70.0) Monocytes (%) (Auto) 10.0 % (0.0-8.0) 8.3 % (0.0-8.0) Neutrophils # (Auto) 9.1 TH/MM3 (1.8-7.7) Monocytes # (Auto) 1.2 TH/MM3 (0-0.9) Random Glucose 154 MG/DL (74-106) Albumin 2.6 GM/DL (3.4-5.0) Calcium Level 8.3 MG/DL (8.5-10.1) Estimat Glomerular Filtration Rate 55 ML/MIN (>89) 72 ML/MIN (>89) Lipase 33 U/L (73-393) Urine Turbidity HAZY (CLEAR) Urine Protein 100 mg/dL (NEG-TRACE) Urine Ketones 40 mg/dL (NEG) Urine Occult Blood MOD (NEG) Urine Nitrite POS (NEG) Urine WBC 7 /hpf (0-5) Urine Bacteria MANY /hpf (NONE) Urine Mucus MANY /lpf (OCC) Chloride Level 110 MEQ/L (98-107) Band Neutrophils % 17 % (0-6) Neutrophils # (Manual) 8.6 TH/MM3 (1.8-7.7) Myelocytes 1 % (0-0) Ovalocytes 1+ (NORMAL) Imaging Last Impressions Chest X-Ray 06/04/17 0049 Signed Impressions: Service Date/Time: Sunday, June 04, 2017 01:12 - CONCLUSION: Infiltrates in the right munir-and infrahilar regions. Dino Sheppard MD PE at Discharge GENERAL: female lying in bed SKIN: No rashes, ecchymoses or lesions. Cool and dry. CARDIOVASCULAR: Regular rate and rhythm without murmurs, gallops, or rubs. RESPIRATORY: Clear to auscultation. Breath sounds equal bilaterally. No wheezes , rales, or rhonchi. GASTROINTESTINAL: Abdomen soft, non-tender, nondistended. No guarding. MUSCULOSKELETAL: Extremities without clubbing, cyanosis, or edema. No joint tenderness, effusion, or edema noted. No calf tenderness. NEUROLOGICAL: Awake and alert. Moves all 4 extremities spontaneously. Hospital Course 1. Healthcare associated pneumonia/sepsis. Improved switch to po Cipro rpt CXR 6 weeks. Blood cultures negative to date. Ordered sputum culture, urinary Legionella and pneumococcal antigen. DuoNeb's. Supplemental oxygen as needed 2. E coli UTI. Stable as above 3. Hypertension/coronary disease/depression. Stable Continue home medication 4. Encephalopathy hx dementia. Likely from sepsis. Improved I think she is baseline. Ct Pureed she needs assistance with meals DVT proph with SQ Heparin Pt Condition on Discharge: Stable Discharge Disposition: Discharge to SNF Discharge Time: > 30 minutes Discharge Instructions DIET: Follow Instructions for: Heart Healthy Diet Speech Therapy-Diet Recommends: Pureed Activities you can perform: Regular-No Restrictions Activities to Avoid: Driving Follow up Referrals: PCP Follow-up - 1 Week New Orders: X-RAY CHEST PA & LAT - 6 Weeks New Medications: Ciprofloxacin (Ciprofloxacin) 750 Mg Tab 750 MG PO Q12HR for Infection, #9 TAB dc 5/4 Continued Medications: Acetaminophen (Tylenol) 325 Mg Tab 650 MG PO Q4H PRN for FEVER, TAB 0 Refills Amlodipine (Amlodipine) 5 Mg Tab 5 MG PO DAILY for Blood Pressure Management, #30 TAB 0 Refills Aspirin (Aspirin) 81 Mg Chew 81 MG CHEW DAILY, TAB 0 Refills Donepezil (Aricept) 23 Mg Tab 5 MG PO HS, TAB Do not split, crushed or chewed. Loperamide (Loperamide) 2 Mg Cap 4 MG PO DIRECTED PRN for DIARRHEA, CAP 0 Refills One capsule after each loose stool. Not to exceed 8 capsules per day. Memantine (Memantine) 5 Mg Tab 5 MG PO DAILY for Alzheimer's Dementia, TAB 0 Refills Mirtazapine (Mirtazapine) 30 Mg Tab 30 MG PO HS for Depression Control, #30 TAB 0 Refills Multiple Vitamin (Multiple Vitamin) 1 Tab 1 TAB PO DAILY for Nutritional Supplement, TAB 0 Refills Potassium Citrate-Citric Acid (Potassium Citrate-Citric Acid) 1,100-334 Mg/5 Ml Soln 15 ML PO QID for Constipation, ML 0 Refills James Acharya MD Jun 06, 2017 13:32
[2017-06-07] MEDS ORDERED: PHARMACY ORDERED LAB ONE (01:45)
== END 2017-06-06 13:46 | DRG 871 ==
LOC: NEPE 00:30 → NEDA 02:14 → NEPFCDU 03:54 → N04B 21:18
PROVIDERS: ADMIT Internal Medicine; ATTEND Internal Medicine
DX: A41.9 Sepsis, unspecified organism (principal); J18.9 Pneumonia, unspecified organism; G93.40 Encephalopathy, unspecified; R13.10 Dysphagia, unspecified; N39.0 Urinary tract infection, site not specified; G30.9 Alzheimer's disease, unspecified; F02.80 Dementia in other diseases classified elsewhere, unspecified severity, without behavioral disturbance, psychotic disturbance, mood disturbance, and anxiety; N13.9 Obstructive and reflux uropathy, unspecified; I44.7 Left bundle-branch block, unspecified; I10 Essential (primary) hypertension; I25.10 Atherosclerotic heart disease of native coronary artery without angina pectoris; F32.9 Major depressive disorder, single episode, unspecified; B96.20 Unspecified Escherichia coli [E. coli] as the cause of diseases classified elsewhere; Y95 Nosocomial condition
CPT/HCPCS: 71045; 80048; 80053; 81001; 82140; 82948; 83605; 83690; 84484; 85007; 85025; 85027; 87040; 87077; 87086; 87186; 93005; 94150; 94640; 94664; 96365; 96367; G8987-GP; G8988-GP; J1644; J2543; J3370; J7030; J7050